=== PATIENT | female | born 1980 | race African-American/Black ===

== ENCOUNTER 2020-04-11 18:56 | Observation (INO) ==
[2020-04-11 19:23] LABS: Basophils # 0.1 10*3/uL (0.0-0.2); Basophils % 0.6 % (0.0-0.8); Eosinophils % 0.2 % (0.00-10.9); Hematocrit 41.8 VOL% (35.7-47.0); Hemoglobin 13.9 GM/DL (12.0-16.0); Immature Granulocytes % 0.4 %; Immature Granulocytes Absolute 0.05 #; Lymphocytes # 1.4 10*3/uL (1.4-4.0); Lymphocytes % 11.8 % (21.3-54.2); Mean Corpuscular HGB Conc 33.3 GM/DL (32-36); Mean Corpuscular Volume 82.9 FL (87-102); Mean Platelet Volume 9.6 FL (9.6-12.0); Monocytes % 2.3 % (1.7-12.7); Neutrophils % 84.7 % (38.7-73.9); Platelet Count 433 T/CUMM (130-400); Red Blood Count 5.04 MC/CUMM (3.8-5.5); Red Cell Distribution Width 16.7 % (9.3-17.3)
[2020-04-11 19:46] LABS: Albumin 3.9 G/DL (3.4-5.0); Bilirubin,Total 0.4 MG/DL (0.2-1.0); Calcium 8.9 MG/DL (8.5-10.1); Osmolality,Calculated 272.7 MOS/KG (273-304); Total Protein 8.1 G/DL (6.4-8.3)
[2020-04-11] MEDS ORDERED: HYDROmorphone 2 MG/1 ML VIAL ONE (23:38)
[2020-04-11] MEDS ORDERED: ONDANSETRON 4 MG/2 ML VIAL ONE (23:38)
[2020-04-11] MEDS ORDERED: HYDROmorphone 2 MG/1 ML VIAL IV STA (23:39)
[2020-04-11] MEDS ORDERED: ONDANSETRON 4 MG/2 ML VIAL IV STA (23:39)
[2020-04-12] MEDS ORDERED: ACETAMINOPHEN 325 MG TABLET PO PRN (00:17)
[2020-04-12] MEDS ORDERED: ONDANSETRON 4 MG/2 ML VIAL IV PRN ×2 (00:17→14:59)
[2020-04-12] MEDS ORDERED: HYDROmorphone 2 MG/1 ML VIAL IV SCH (00:30)
[2020-04-12] MEDS: DEXTROSE 5% NACL 0.45% 1,000 ML IV SCH ×2 (01:20→16:32)
[2020-04-12] MEDS: HYDROmorphone 2 MG/1 ML VIAL IV PRN ×5 (02:55→15:20)
[2020-04-12] MEDS ORDERED: ceFAZolin 2,000 MG in PREMIX 1 EACH IV ONE (07:51)
[2020-04-12] MEDS ORDERED: TISSUE ADHESIVE 1 EACH APPLICATOR TOP ONE (13:25)
[2020-04-12] MEDS ORDERED: BUPIVACAINE LIPOSOMAL 20 ML/266 MG VIAL ONE (13:26)
[2020-04-12] MEDS ORDERED: fentaNYL 100 MCG/2 ML VIAL ONE (13:33)
[2020-04-12] MEDS ORDERED: MIDAZOLAM 2 MG/2 ML VIAL ONE (13:34)
[2020-04-12] MEDS ORDERED: propofoL 200 MG/20 ML VIAL IV ONE (13:43)
[2020-04-12] MEDS ORDERED: LIDOCAINE 2% 5 ML VIAL ONE (13:43)
[2020-04-12] MEDS ORDERED: ONDANSETRON 4 MG/2 ML VIAL ONE (14:06)
[2020-04-12] MEDS ORDERED: SEVOFLURANE 1 UNIT/15 MINUTE INH ONE (14:17)
[2020-04-12] MEDS: KETOROLAC 30 MG/1 ML VIAL IV SCH ×2 (16:33→21:18)
[2020-04-12] MEDS: PANTOPRAZOLE 40 MG TABLET PO SCH (16:33)
[2020-04-13] MEDS: DEXTROSE 5% NACL 0.45% 1,000 ML IV SCH ×3 (00:01→07:15)
[2020-04-13] MEDS: HYDROmorphone 2 MG/1 ML VIAL IV PRN (03:27)
[2020-04-13] MEDS: KETOROLAC 30 MG/1 ML VIAL IV SCH ×2 (03:27→09:23)
[2020-04-13 07:32] VITALS: BP 114/70
[2020-04-13] MEDS: PANTOPRAZOLE 40 MG TABLET PO SCH (08:12)
[2020-04-13] MEDS ORDERED: diphenhydrAMINE CAP 25 MG CAPSULE PO ONE (09:00)
== END 2020-04-13 09:33 | disposition home or self-care (01) ==
LOC: N.ED 18:56 → N.EDINP 18:56 → N.3E 04-12 15:44
PROVIDERS: ADMIT Surgery; ATTEND Surgery